=== PATIENT | female | born 1985 | race African-American/Black ===

== ENCOUNTER 2016-05-20 20:45 | Emergency (ER) | payer MEDICAID ==
[~2016-05-20] VITALS: Ht 149.9 cm; Wt 59.0 kg
[2016-05-20] MEDS ORDERED: ALBUTEROL2.5 MG/3 M INH (21:21)
[2016-05-20] MEDS ORDERED: IBUPROFEN600 MG ORAL (21:56)
[2016-05-20] MEDS ORDERED: VENTOLIN HFA18 GM INH (21:56)
[2016-05-20] MEDS ORDERED: Ketorolac 60mg Inj IM ONE (22:00)
[2016-05-20 22:28] VITALS: BP 127/84
--- NOTE | 2016-05-20 22:38 | Emergency Room Report ---
History of Present Illness General Chief Complaint: Sore Throat Source: Patient Present Illness HPI 30 YO F with 2 days sore throat, sharp pain left sided, not radiating, worse with swallowing, assoc with cough, rhinorrhea. + asthma, smoker. Ran out of inhaler. Didnt take any OTC meds before coming. Allergies: Coded Allergies: No Known Allergies (Unverified , 05/20/16) Patient History Past Medical History: asthma Past Surgical History: none Pertinent Family History: none Social History: Reports: smoking, Denies: alcohol use, drug use Last Menstrual Period: Apr Now: No Immunizations: UTD Reviewed Nursing Documentation: PMH: Agreed, PSxH: Agreed Nursing Documentation-PMH Hx Asthma: Yes Review of Systems All Other Systems: negative except mentioned in HPI Physical Exam Vital Signs Date Time Temp Pulse Resp B/P Pulse Ox O2 Delivery O2 Flow Rate FiO2 05/20/16 21:17 98.1 75 16 130/88 99 Room Air Sp02 EP Interpretation: reviewed, normal General Appearance: normal inspection, well appearing, no apparent distress, alert, GCS 15, non-toxic Head: normocephalic, atraumatic Eyes: bilateral eye EOMI, bilateral eye PERRL ENT: normal ENT inspection, hearing grossly normal, normal pharynx, no angioedema, normal voice, TMs + canals normal, uvula midline Neck: normal inspection, full range of motion, supple, no bony tend Respiratory: normal inspection, lungs clear, normal breath sounds, no respiratory distress, no retraction, no wheezing Cardiovascular #1: regular rate, rhythm, no edema Gastrointestinal: normal inspection, normal bowel sounds, non tender, soft, no guarding, no hernia Genitourinary: no CVA tenderness Musculoskeletal: normal inspection, back normal, normal range of motion, Griselda' s Sign negative Neurologic: normal inspection, alert, oriented x3, responsive, press officer III-XII nml as tested, motor strength/tone normal, speech normal Psychiatric: normal inspection, judgement/insight normal, mood/affect normal Skin: normal inspection, normal color, no rash Lymphatic: normal inspection Medical Decision Making Diagnostic Impression: Primary Impression: Sore throat ER Course 30YO F with URI and sore throat symptoms. VSS. Afebrile No obvious source of bacterial infection in oropharynx, ears, lungs, skin, abdomen on exam Well appearing Not in acute asthma exacerbation Advised supportive treatment with ibuprofen Refilled Ventolin PMD followup DC home Understands to return for worsening symptoms - Ibuprofen PRN pain - Ventolin for cough - Follow up with your primary care doctor in 2-3 days Last Vital Signs Date Time Temp Pulse Resp B/P Pulse Ox O2 Delivery O2 Flow Rate FiO2 05/20/16 22:28 98.3 77 19 127/84 98 Room Air Status: improved Disposition: HOME, SELF-CARE Condition: Improved Scripts Ibuprofen* (MOTRIN*) 600 Mg Tablet 600 MG ORAL THREE TIMES A DAY for sore throat, #30 TAB 0 Refills Prov: JIAN UP M.D. 05/20/16 Albuterol Sulfate (VENTOLIN HFA) 18 Gm Hfa.aer.ad 2 PUFFS INH EVERY 6 HOURS, #18 GM 0 Refills Prov: JIAN UP M.D. 05/20/16 Patient Instructions: Pharyngitis, Hcer-io-Lrst Additional Instructions: - Take ibuprofen every 8 hours with food as needed for sore throat - Drink plenty of fluids - Dry tea with honey at night for cough - Use ventolin as needed for cough JIAN UP M.D. May 20, 2016 22:38
[2016-05-20 22:49] VITALS: BP 127/84
== END 2016-05-20 22:52 | disposition home or self-care (01) ==
LOC: EMR 22:15
DX: R07.0 Pain in throat (principal); R05 Cough; J45.909 Unspecified asthma, uncomplicated; F17.200 Nicotine dependence, unspecified, uncomplicated; J34.89 Other specified disorders of nose and nasal sinuses
CPT/HCPCS: 96372; 99284

== ENCOUNTER 2017-10-05 08:19 | Emergency (ER) | payer MEDICAID ==
[~2017-10-05] VITALS: Ht 149.9 cm; Wt 68.0 kg
[~2017-10-05 08:19] MED LIST: ALBUTEROL2.5 MG/3 M INH; IBUPROFEN600 MG ORAL; VENTOLIN HFA18 GM INH
[2017-10-05 08:29] VITALS: BP 131/82
[2017-10-05] MEDS ORDERED: KENALOG 0.025%15 GM APPLIC (08:53)
[2017-10-05 09:22] VITALS: BP 127/74
--- NOTE | 2017-10-05 13:28 | Emergency Room Report ---
History of Present Illness General Chief Complaint: Skin Rash/Abscess Source: Patient Present Illness HPI Patient is a 32-year-old female who presented after increased itchy rash to her right lower extremity. Patient had reportedly been having increased discomfort to that area for several days. The patient had recently been using some sandals with metallic inserts. Patient denies any recent trauma. She had not been having any fever. She denies any blistering. Patient denies recent antibiotic use. She denies being . Allergies: Coded Allergies: No Known Allergies (Unverified , 05/20/16) Patient History Past Medical History: see triage record Last Menstrual Period: 09/01/17 Reviewed Nursing Documentation: PMH: Agreed; PSxH: Agreed Nursing Documentation-PMH Past Medical History: No History, Except For Hx Asthma: Yes Review of Systems All Other Systems: negative except mentioned in HPI Physical Exam Vital Signs Date Time Temp Pulse Resp B/P (MAP) Pulse Ox O2 Delivery O2 Flow Rate FiO2 10/05/17 08:29 99.0 74 18 131/82 97 Room Air 99.0 General Appearance: well appearing, no apparent distress, alert, GCS 15 Head: normocephalic, atraumatic ENT: hearing grossly normal, normal voice Neck: full range of motion, supple Respiratory: no respiratory distress, speaking full sentences Cardiovascular #1: normal inspection, regular rate, rhythm Musculoskeletal: no calf tenderness Neurologic: normal gait Psychiatric: mood/affect normal Skin: other - two discrete blister to right foot, no erythema Medical Decision Making Diagnostic Impression: Primary Impression: Contact dermatitis ER Course Patient presented for skin rash. Differential diagnosis included was not limited to allergic reaction, contact dermatitis, dyshidrotic eczema among others. Patient has a benign exam and does not appear to require any further imaging or laboratory testing at this time. The patient appears to have some evidence of contact dermatitis which is likely the related to a nickel allergy. The patient given prescription for triamcinolone cream.The patient is advised to follow up with primary care doctor. Patient is advised to return if any worsening condition or if any changes in status that are concerning. This report is dictated with [employer] order picker software which may occasionally lead to discrepancies related to use of this software. Last Vital Signs Date Time Temp Pulse Resp B/P (MAP) Pulse Ox O2 Delivery O2 Flow Rate FiO2 10/05/17 09:22 98.1 70 16 127/74 99 Room Air 99.0 Status: improved Disposition: HOME, SELF-CARE Condition: Stable Scripts Triamcinolone Acet (Triamcinolone Acetonide) 15 Gm Cream..g. 15 GM APPLIC DAILY, #15 GM Prov: Damian Rothman MD 10/05/17 Referrals: NOT CHOSEN IPA/MD,REFERRING Patient Instructions: Contact Dermatitis, [id number] Damian Rothman MD Oct 05, 2017 13:28
== END 2017-10-05 09:23 | disposition home or self-care (01) ==
LOC: EMR 08:58
DX: L25.9 Unspecified contact dermatitis, unspecified cause (principal); J45.909 Unspecified asthma, uncomplicated
CPT/HCPCS: 99283

== ENCOUNTER 2018-10-20 09:57 | Emergency (ER) | payer MEDICAID ==
[~2018-10-20] VITALS: Ht 149.9 cm; Wt 65.8 kg
[~2018-10-20 09:57] MED LIST changes: +KENALOG 0.025%15 GM APPLIC
[2018-10-20 10:12] VITALS: BP 152/87
--- NOTE | 2018-10-20 10:21 | NUR ---
ED Nurse Note: pt walked in from home c/o n/v/d and abd pain for 2 days unable to sleep ermd eval done awaiting orders.
--- NOTE | 2018-10-20 10:28 | Emergency Room Report ---
History of Present Illness General Chief Complaint: Nausea, Vomiting, and Diarrhea Source: Patient Present Illness HPI Disclaimer: Please note that this report is being documented using DRAGON technology. This can lead to erroneous entry secondary to incorrect interpretation by the dictating instrument. HPI: 33-year-old female with a history of asthma presents for evaluation of abdominal pain, vomiting and diarrhea. Symptoms began approximately 3 days ago with some abdominal cramping and then progressed to profuse watery, nonbloody diarrhea. Over the past 2 days she has been vomiting and unable to hold down solids or liquids. She denies any hematemesis but now states she is vomiting bile. She notes urinary frequency but denies dysuria, hematuria, vaginal bleeding or vaginal discharge. LMP 3 weeks ago. Denies any sinus congestion, sinus pressure, headaches, sore throat, chest pain, cough, shortness of breath. She did note some wheezing last night but did not need her albuterol inhaler. Denies any new back pain or rash. She did note feeling very weak and near syncopal when rising from a seated position over the past couple days which she attributes to dehydration. PMH: Asthma PSH: section Allergies: Denies Social Hx: THC use, denies alcohol use, denies tobacco use Allergies: Coded Allergies: No Known Allergies (Unverified , 05/20/16) Patient History Last Menstrual Period: 09/25/18 Now: No Nursing Documentation-PM Past Medical History: No History, Except For Hx Asthma: Yes Hx Gastrointestinal Problems: Yes - GASTRITIS Review of Systems All Other Systems: negative except mentioned in HPI Physical Exam Vital Signs Date Time Temp Pulse Resp B/P (MAP) Pulse Ox O2 Delivery O2 Flow Rate FiO2 10/20/18 10:01 98.1 94 16 152/87 (108) 99 Room Air General: Awake and alert, no acute distress HEENT: NC/AT. EOMI. anicteric sclera. Very dry mucous membranes Cardiovascular: RRR. S1 and S2 normal. No murmur appreciated. Slightly sluggish capillary refill Resp: Normal work of breathing. No cough, wheezing or crackles appreciated Abdomen: Abdomen is soft, nondistended. Mild tenderness in the epigastrium. No masses. No rebound, negative Muir sign. Skin: Intact. No abrasions, laceration or rash over the exposed skin MSK: Normal tone and bulk. Moving all extremities. No obvious deformity. Neuro: Awake and alert. Mentating appropriately. Medical Decision Making ER Course 33-year-old female presents for evaluation after several days of vomiting, diarrhea no lightheadedness. Differential includes but is not limited to gastroenteritis, gastritis, cholecystitis, pancreatitis, appendicitis, , ectopic , urinary tract infection, pyelonephritis. Of these, viral gastroenteritis is the likely diagnosis. She requires IV fluids as she is clinically dehydrated. We will start metabolic work-up give antiemetics and IV hydration. Advance work-up as needed. Laboratory Tests Test 10/20/18 10:34 White Blood Count 12.9 K/UL (4.8-10.8) H Red Blood Count 5.12 M/UL (4.20-5.40) Hemoglobin 15.2 G/DL (12.0-16.0) Hematocrit 45.4 % (37.0-47.0) Mean Corpuscular Volume 89 FL (80-99) Mean Corpuscular Hemoglobin 29.8 PG (27.0-31.0) Mean Corpuscular Hemoglobin Concent 33.5 G/DL (32.0-36.0) Red Cell Distribution Width 11.0 % (11.6-14.8) L Platelet Count 383 K/UL (150-450) Mean Platelet Volume 6.6 FL (6.5-10.1) Neutrophils (%) (Auto) % (45.0-75.0) Lymphocytes (%) (Auto) % (20.0-45.0) Monocytes (%) (Auto) % (1.0-10.0) Eosinophils (%) (Auto) % (0.0-3.0) Basophils (%) (Auto) % (0.0-2.0) Differential Total Cells Counted 100 Neutrophils % (Manual) 82 % (45-75) H Lymphocytes % (Manual) 14 % (20-45) L Monocytes % (Manual) 3 % (1-10) Eosinophils % (Manual) 1 % (0-3) Basophils % (Manual) 0 % (0-2) Band Neutrophils 0 % (0-8) Platelet Estimate Adequate Platelet Morphology Normal Red Blood Cell Morphology Normal Urine Color Yellow Urine Appearance Slightly cloudy Urine pH 6 (4.5-8.0) Urine Specific [place] 1.025 (1.005-1.035) Urine Protein 3+ (NEGATIVE) H Urine Glucose (UA) Negative (NEGATIVE) Urine Ketones 4+ (NEGATIVE) H Urine Blood 1+ (NEGATIVE) H Urine Nitrite Negative (NEGATIVE) Urine Bilirubin Negative (NEGATIVE) Urine Urobilinogen Normal MG/DL (0.0-1.0) Urine Leukocyte Esterase Negative (NEGATIVE) Urine RBC 2-4 /HPF (0 - 2) H Urine WBC 5-10 /HPF (0 - 2) H Urine Squamous Epithelial Cells Many /LPF (NONE/OCC) H Urine Amorphous Sediment Few /LPF (NONE) H Urine Bacteria Few /HPF (NONE) Urine HCG, Qualitative Negative (NEGATIVE) Sodium Level 137 MMOL/L (136-145) Potassium Level 3.3 MMOL/L (3.5-5.1) L Chloride Level 99 MMOL/L (98-107) Carbon Dioxide Level 24 MMOL/L (21-32) Anion Gap 14 mmol/L (5-15) Blood Urea Nitrogen 13 mg/dL (7-18) Creatinine 1.0 MG/DL (0.55-1.30) Estimat Glomerular Filtration Rate > 60 mL/min (>60) Glucose Level 162 MG/DL (74-106) H Calcium Level 9.9 MG/DL (8.5-10.1) Total Bilirubin 0.6 MG/DL (0.2-1.0) Aspartate Amino Transf (AST/SGOT) 21 U/L (15-37) Alanine Aminotransferase (ALT/SGPT) 23 U/L (12-78) Alkaline Phosphatase 142 U/L (46-116) H Total Protein 9.8 G/DL (6.4-8.2) H Albumin 4.9 G/DL (3.4-5.0) Globulin 4.9 g/dL Albumin/Globulin Ratio 1.0 (1.0-2.7) Lipase 88 U/L (73-393) Reevaluation Time: 13:53 Last Vital Signs Date Time Temp Pulse Resp B/P (MAP) Pulse Ox O2 Delivery O2 Flow Rate FiO2 10/20/18 10:12 98.1 16 152/87 99 Room Air 10/20/18 10:01 94 Status: improved Reevaluation Impression Patient is feeling much better after receiving IV fluids and antiemetics. Lab work is largely reassuring though there is 2+ leukocyte esterase and white cells concerning for acute urinary tract infection. Will send for confirmatory culture but will treat with Keflex. Patient is requesting a prescription for Gas-X and continued antiemetics. We will send her home with Zofran. We discussed need to stay hydrated as well as proper follow-up with her PMD. I also included the names and numbers of several clinics in the area where she can be seen. We discussed reasons to return to the emergency department and the patient understands and agrees with this treatment plan. Disposition: HOME, SELF-CARE Condition: Improved Scripts Cephalexin* (KEFLEX*) 500 Mg Capsule 500 MG ORAL EVERY 12 HOURS for 7 Days, #14 CAP 0 Refills Prov: Ronnie Watts MD 10/20/18 Simethicone (GAS-X) 125 Mg Capsule 125 MG PO TID for 7 Days, #20 CAP Prov: Ronnie Watts MD 10/20/18 Ondansetron Odt* (ZOFRAN ODT*) 4 Mg Tab.rapdis 4 MG BC EVERY 6 HOURS PRN for Nausea & Vomiting, #20 TAB 0 Refills Prov: Ronnie Watts MD 10/20/18 Referrals: NON PHYSICIAN (PCP) Ronnie Watts MD Oct 20, 2018 10:28
--- NOTE | 2018-10-20 10:46 | NUR ---
ED Nurse Note: blood and urine sent to lab pt on monitor vss . pt medicated.
[2018-10-20 10:50] LABS: HEMATOCRIT 45.4 % (37.0-47.0); HEMOGLOBIN 15.2 G/DL (12.0-16.0); MEAN CORPUSCULAR VOLUME 89 FL (80-99); PLATELET COUNT 383 K/UL (150-450); RED BLOOD COUNT 5.12 M/UL (4.20-5.40); WHITE BLOOD COUNT 12.9 K/UL (4.8-10.8)
[2018-10-20 11:03] LABS: APPEARANCE,URINE SLIGHTLY CLOUDY; BILIRUBIN, URINE NEGATIVE (NEGATIVE); GLUCOSE, URINE (UA) NEGATIVE (NEGATIVE); KETONES,URINE 4+ (NEGATIVE); LEUKOCYTE ESTERASE ,URINE NEGATIVE (NEGATIVE); NITRITE,URINE NEGATIVE (NEGATIVE); PH,URINE 6 (4.5-8.0); PROTEIN,URINE 3+ (NEGATIVE); UROBILINOGEN,URINE NORMAL MG/DL (0.0-1.0)
[2018-10-20 11:07] LABS: COLOR,URINE YELLOW
[2018-10-20 11:14] LABS: ANION GAP 14 mmol/L (5-15); BLOOD UREA NITROGEN 13 mg/dL (7-18); CALCIUM 9.9 MG/DL (8.5-10.1); CARBON DIOXIDE 24 MMOL/L (21-32); CHLORIDE 99 MMOL/L (98-107); POTASSIUM 3.3 MMOL/L (3.5-5.1); SODIUM 137 MMOL/L (136-145)
[2018-10-20 11:18] LABS: ALANINE AMINOTRANSFERASE 23 U/L (12-78); ALBUMIN 4.9 G/DL (3.4-5.0); ALKALINE PHOSPHATASE 142 U/L (46-116); ASPARTATE AMINO TRANSFERASE 21 U/L (15-37); BILIRUBIN,TOTAL 0.6 MG/DL (0.2-1.0)
[2018-10-20 12:00] VITALS: BP 128/73
--- NOTE | 2018-10-20 12:00 | NUR ---
ED Nurse Note: IVF COMPLETE PT ON MONITOR SLEEPING ON LEFT LATERAL POSITION. VSS.
[2018-10-20] MEDS ORDERED: CEPHALEXIN500 MG ORAL (13:52)
[2018-10-20] MEDS ORDERED: ONDANSETRON ODT4 MG BC (13:52)
[2018-10-20] MEDS ORDERED: GAS-X125 MG PO (13:52)
[2018-10-20] MEDS ORDERED: Morphine Sulfate 2mg/ml Inj(IV/IM USE ONLY) IVP ONE (14:00)
[2018-10-20 14:05] VITALS: BP 135/73
--- NOTE | 2018-10-20 14:05 | NUR ---
ER DISCHARGE NOTE: Patient is cleared to be discharged per ERMD, pt is aox4, on room air, with stable vital signs. pt was given dc and prescription instructions, pt was able to verbalize understanding, pt id band and iv site removed without complications. pt is able to ambulate with steady gait. pt took all belongings.
[2018-10-21] MEDS ORDERED: PHENERGAN25 M1 ORAL (15:10)
== END 2018-10-20 14:05 | disposition home or self-care (01) ==
LOC: EMR 10:12
DX: R10.9 Unspecified abdominal pain (principal); R11.10 Vomiting, unspecified; R19.7 Diarrhea, unspecified
CPT/HCPCS: 36415; 80053; 81003; 81025; 83690; 85007; 85025; 96361; 96374; 96375; 96376; 99284; J2405; S0028

== ENCOUNTER 2018-10-21 12:31 | Emergency (ER) | payer MEDICAID ==
[~2018-10-21] VITALS: Ht 149.9 cm; Wt 65.8 kg
[~2018-10-21 12:31] MED LIST changes: +CEPHALEXIN500 MG ORAL; +GAS-X125 MG PO; +ONDANSETRON ODT4 MG BC
[2018-10-21 12:35] VITALS: BP 132/83
--- NOTE | 2018-10-21 12:35 | NUR ---
ED Nurse Note: pt brought in to ER by ambulance from home due to abdominal pain 7/10 N/V. pt aao x4 and ambulatory but weak due to abdominal pain. calm and cooperative but fatigued. skin clean and intact. pt vomiting white saliva x3. no acute distress noted. vss as documented.
--- NOTE | 2018-10-21 13:20 | Emergency Room Report ---
History of Present Illness General Chief Complaint: Abdominal Pain Source: EMS Present Illness HPI Disclaimer: Please note that this report is being documented using DRAGON technology. This can lead to erroneous entry secondary to incorrect interpretation by the dictating instrument. HPI: Is a 33-year-old otherwise healthy female who presents for evaluation of vomiting abdominal pain. Seen here yesterday for similar presentation and diagnosed with gastritis and urinary tract infection. She was discharged on antibiotics but she states she has not been unable to take it her medications due to persistent vomiting. She states that Zofran may not work for her. No new symptoms. She denies fever, chest pain, shortness of breath, dysuria, hematuria. PMH: Asthma PSH: section Allergies: Denies Social Hx: THC use, denies alcohol use, denies tobacco use Allergies: Coded Allergies: No Known Allergies (Unverified , 05/20/16) Patient History Last Menstrual Period: 7-21 Now: No Nursing Documentation-PMH Past Medical History: No History, Except For Hx Asthma: Yes Hx Gastrointestinal Problems: Yes - gastritis Review of Systems All Other Systems: negative except mentioned in HPI Physical Exam Vital Signs Date Time Temp Pulse Resp B/P (MAP) Pulse Ox O2 Delivery O2 Flow Rate FiO2 10/21/18 12:27 98.4 63 18 132/83 (99) 98 Room Air General: Awake and alert, no acute distress, appears fatigued HEENT: NC/AT. EOMI. moist mucous membranes Cardiovascular: RRR. S1 and S2 normal. No murmur appreciated Resp: Normal work of breathing. No cough, wheezing or crackles appreciated Abdomen: Abdomen is soft, nondistended. Tenderness in the epigastrium. No masses appreciated Skin: Intact. No abrasions, laceration or rash over the exposed skin MSK: Normal tone and bulk. Moving all extremities. No obvious deformity. Neuro: Awake and alert. Mentating appropriately. Medical Decision Making Diagnostic Impression: Primary Impression: Gastroenteritis ER Course 33-year-old female presents for evaluation for the second time in 2 days for nausea, vomiting and abdominal pain. We will repeat labs and treat with IV fluids. We will give her Reglan for nausea as Zofran did not appear to work for her as an outpatient. Vital signs are stable. Laboratory Tests Test 10/21/18 13:40 10/21/18 14:30 White Blood Count 9.4 K/UL (4.8-10.8) Red Blood Count 4.90 M/UL (4.20-5.40) Hemoglobin 14.7 G/DL (12.0-16.0) Hematocrit 43.0 % (37.0-47.0) Mean Corpuscular Volume 88 FL (80-99) Mean Corpuscular Hemoglobin 30.0 PG (27.0-31.0) Mean Corpuscular Hemoglobin Concent 34.1 G/DL (32.0-36.0) Red Cell Distribution Width 11.0 % (11.6-14.8) L Platelet Count 350 K/UL (150-450) Mean Platelet Volume 6.2 FL (6.5-10.1) L Neutrophils (%) (Auto) 75.9 % (45.0-75.0) H Lymphocytes (%) (Auto) 16.3 % (20.0-45.0) L Monocytes (%) (Auto) 6.4 % (1.0-10.0) Eosinophils (%) (Auto) 0.0 % (0.0-3.0) Basophils (%) (Auto) 1.4 % (0.0-2.0) Sodium Level 139 MMOL/L (136-145) Potassium Level 3.7 MMOL/L (3.5-5.1) Chloride Level 102 MMOL/L (98-107) Carbon Dioxide Level 25 MMOL/L (21-32) Anion Gap 12 mmol/L (5-15) Blood Urea Nitrogen 10 mg/dL (7-18) Creatinine 0.8 MG/DL (0.55-1.30) Estimate Glomerular Filtration Rate > 60 mL/min (>60) Glucose Level 119 MG/DL (74-106) H Calcium Level 9.3 MG/DL (8.5-10.1) Total Bilirubin 0.5 MG/DL (0.2-1.0) Aspartate Amino Transferase (AST) 26 U/L (15-37) Alanine Aminotransferase (ALT) 27 U/L (12-78) Alkaline Phosphatase 110 U/L (46-116) Total Protein 8.6 G/DL (6.4-8.2) H Albumin 4.4 G/DL (3.4-5.0) Globulin 4.2 g/dL Albumin/Globulin Ratio 1.0 (1.0-2.7) Lipase 77 U/L (73-393) Urine Color Yellow Urine Appearance Clear Urine pH 6 (4.5-8.0) Urine Specific [place] 1.020 (1.005-1.035) Urine Protein 2+ (NEGATIVE) H Urine Glucose (UA) Negative (NEGATIVE) Urine Ketones 4+ (NEGATIVE) H Urine Blood Negative (NEGATIVE) Urine Nitrite Negative (NEGATIVE) Urine Bilirubin Negative (NEGATIVE) Urine Urobilinogen Normal MG/DL (0.0-1.0) Urine Leukocyte Esterase Negative (NEGATIVE) Urine RBC 0-2 /HPF (0 - 2) Urine WBC 0-2 /HPF (0 - 2) Urine Squamous Epithelial Cells Few /LPF (NONE/OCC) Urine Bacteria Few /HPF (NONE) Urine Mucus Moderate /LPF (NONE/OCC) H Reevaluation Time: 15:00 Last Vital Signs Date Time Temp Pulse Resp B/P (MAP) Pulse Ox O2 Delivery O2 Flow Rate FiO2 10/21/18 12:35 98.4 63 18 132/83 98 Room Air Status: improved Reevaluation Impression Labs have returned largely within normal limits. The patient did have significant improvement with Reglan but required Benadryl for akathisia. She does not want to be discharged home on Reglan and we will send her on Phenergan instead. She has been instructed to follow-up with her PMD. Urinalysis appears improved as compared to yesterday however we will continue the antibiotics until cultures are resulted. She understands and agrees with this treatment plan will be discharged home. Disposition: HOME, SELF-CARE Condition: Improved Scripts Promethazine Hcl* (PHENERGAN*) 25 Mg Tablet 25 MG ORAL Q6H, #15 TAB 0 Refills Prov: Ronnie Watts MD 10/21/18 Ronnie Watts MD Oct 21, 2018 13:20
[2018-10-21] MEDS ORDERED: Metoclopramide 10mg/2ml Inj IVP ONE (13:30)
[2018-10-21 13:50] LABS: BASOPHILS % (AUTO) 1.4 % (0.0-2.0); HEMOGLOBIN 14.7 G/DL (12.0-16.0); LYMPHOCYTES % (AUTO) 16.3 % (20.0-45.0); MEAN CORPUSCULAR VOLUME 88 FL (80-99); MONOCYTES % (AUTO) 6.4 % (1.0-10.0); NEUTROPHILS % (AUTO) 75.9 % (45.0-75.0); PLATELET COUNT 350 K/UL (150-450); WHITE BLOOD COUNT 9.4 K/UL (4.8-10.8)
[2018-10-21 13:59] LABS: ANION GAP 12 mmol/L (5-15); BLOOD UREA NITROGEN 10 mg/dL (7-18); CALCIUM 9.3 MG/DL (8.5-10.1); CARBON DIOXIDE 25 MMOL/L (21-32); CHLORIDE 102 MMOL/L (98-107); CREATININE 0.8 MG/DL (0.55-1.30); POTASSIUM 3.7 MMOL/L (3.5-5.1); SODIUM 139 MMOL/L (136-145)
[2018-10-21 14:05] LABS: ALANINE AMINOTRANSFERASE 27 U/L (12-78); ALBUMIN 4.4 G/DL (3.4-5.0); ALKALINE PHOSPHATASE 110 U/L (46-116); ASPARTATE AMINO TRANSFERASE 26 U/L (15-37); BILIRUBIN,TOTAL 0.5 MG/DL (0.2-1.0)
--- NOTE | 2018-10-21 14:33 | NUR ---
ED Nurse Note: pt is not vomiting anymore and ambulated to bathroom wih steady gait.
[2018-10-21 14:51] LABS: APPEARANCE,URINE CLEAR; BILIRUBIN, URINE NEGATIVE (NEGATIVE); GLUCOSE, URINE (UA) NEGATIVE (NEGATIVE); KETONES,URINE 4+ (NEGATIVE); LEUKOCYTE ESTERASE ,URINE NEGATIVE (NEGATIVE); NITRITE,URINE NEGATIVE (NEGATIVE); PH,URINE 6 (4.5-8.0); PROTEIN,URINE 2+ (NEGATIVE); UROBILINOGEN,URINE NORMAL MG/DL (0.0-1.0)
[2018-10-21 14:53] LABS: COLOR,URINE YELLOW
[2018-10-21] MEDS ORDERED: PHENERGAN25 M1 ORAL (15:10)
[2018-10-21 15:15] VITALS: BP 132/83
--- NOTE | 2018-10-21 15:15 | NUR ---
ER DISCHARGE NOTE: Patient is cleared to be discharged per ERMD, pt is aox4, accompanied by boyfriend, on room air, with stable vital signs. pt was given dc and prescription instructions, pt was able to verbalize understanding, pt id band and iv site removed without complications. pt is able to ambulate with steady gait. pt took all belongings.
== END 2018-10-21 15:15 | disposition home or self-care (01) ==
LOC: EDBD 12:31 → EMR 14:24
DX: K52.9 Noninfective gastroenteritis and colitis, unspecified (principal); J45.909 Unspecified asthma, uncomplicated
CPT/HCPCS: 36415; 80053; 81003; 83690; 85025; 96361; 96374; 99284; J2765

== ENCOUNTER 2019-01-23 22:39 | Emergency (ER) | payer MEDICAID ==
[~2019-01-23] VITALS: Ht 149.9 cm; Wt 68.0 kg
[~2019-01-23 22:39] MED LIST changes: +PHENERGAN25 M1 ORAL
[2019-01-23 23:38] VITALS: BP 163/84
--- NOTE | 2019-01-23 23:59 | Emergency Room Report ---
History of Present Illness General Chief Complaint: Nausea Source: Patient Present Illness [facility] This is a 33-year-old female with a history of cyclic vomiting syndrome. She said that she has gastroenteritis. This occurred many times. She also smokes marijuana. She presents with chief complaint of abdominal pain with nausea and vomiting. No diarrhea. Onset yesterday. And keep anything down. Similar symptom in the past. She says she took 5 hot showers already. This seemed to help some. Vomiting is nonbloody nonbilious. No fever chills. Pain is crampy and sharp in nature. 8 out of 10. Allergies: Coded Allergies: No Known Allergies (Unverified , 05/20/16) Patient History Past Medical History: see triage record, old chart reviewed Past Surgical History: none Pertinent Family History: none Social History: Reports: drug use - THC Last Menstrual Period: 12/2018 Now: No - "could be" : 1 Para: 1 Immunizations: other Reviewed Nursing Documentation: PMH: Agreed; PSxH: Agreed Nursing Documentation-PMH Hx Asthma: Yes Hx Gastrointestinal Problems: Yes - gastritis Review of Systems Eye: Denies: eye pain, blurred vision ENT: Denies: ear pain, nose congestion, throat swelling Respiratory: Denies: cough, shortness of breath Cardiovascular: Denies: chest pain, palpitations Gastrointestinal: Reports: abdominal pain, nausea, vomiting; Denies: diarrhea Musculoskeletal: Denies: back pain, joint pain Skin: Denies: rash Neurological: Denies: headache, numbness Endocrine: Denies: increased thirst, increased urine Hematologic/Lymphatic: Denies: easy bruising All Other Systems: negative except mentioned in HPI Physical Exam Vital Signs Date Time Temp Pulse Resp B/P (MAP) Pulse Ox O2 Delivery O2 Flow Rate FiO2 01/23/19 23:08 99.0 105 20 163/84 (110) 97 Room Air Vitals with high blood pressure Sp02 EP Interpretation: reviewed, normal General Appearance: well appearing, no apparent distress, alert Head: normocephalic, atraumatic Eyes: bilateral eye PERRL, bilateral eye EOMI ENT: hearing grossly normal, normal pharynx Neck: full range of motion, supple, no meningismus Respiratory: chest non-tender, lungs clear, normal breath sounds Cardiovascular #1: regular rate, rhythm, no murmur Gastrointestinal: no mass, no organomegaly, no bruit, non-distended, tenderness - Mild, diffuse, decreased bowel sounds Musculoskeletal: back normal, gait/station normal, normal range of motion Psychiatric: mood/affect normal Medical Decision Making Diagnostic Impression: Primary Impression: Cannabinoid hyperemesis syndrome Additional Impression: UTI (urinary tract infection) Qualified Codes: N30.00 - Acute cystitis without hematuria ER Course Premises secondary to cannabis. No evidence of acute abdomen. Better after medication. Will discharge home. Advised her to stop smoking marijuana. Last Vital Signs Date Time Temp Pulse Resp B/P (MAP) Pulse Ox O2 Delivery O2 Flow Rate FiO2 01/23/19 23:38 99.0 105 20 163/84 97 Room Air Status: improved Disposition: HOME, SELF-CARE Condition: Stable Scripts Nitrofurantoin Monohyd/M-Cryst (Nitrofurantoin Angelina-Mcr 100 mg) 100 Mg Capsule 100 MG ORAL Q12H, #14 CAP Prov: Yamil Plascencia MD 01/24/19 Ondansetron (Zofran) 4 Mg Tablet 4 MG ORAL Q6H PRN for Nausea & Vomiting, #10 TAB 0 Refills Prov: Yamil Plascencia MD 01/24/19 Referrals: [facility],REFERRING (PCP) Additional Instructions: Stop smoking marijuana. This is causing your vomiting. Follow-up with your doctor in 7 days. Increase fluids. Return if worse. Yamil Plascencia MD Jan 23, 2019 23:59
[2019-01-24] MEDS ORDERED: Promethazine HCl 50 MG in NS 110 ML IVPB ONE ×2
[2019-01-24] MEDS ORDERED: Morphine Sulfate 4mg/ml Inj (IV USE ONLY) IVP ONE
[2019-01-24 00:11] LABS: APPEARANCE,URINE CLOUDY; BILIRUBIN, URINE NEGATIVE (NEGATIVE); GLUCOSE, URINE (UA) NEGATIVE (NEGATIVE); KETONES,URINE 3+ (NEGATIVE); LEUKOCYTE ESTERASE ,URINE NEGATIVE (NEGATIVE); NITRITE,URINE NEGATIVE (NEGATIVE); PH,URINE 6 (4.5-8.0); PROTEIN,URINE 3+ (NEGATIVE); UROBILINOGEN,URINE NORMAL MG/DL (0.0-1.0)
[2019-01-24 00:23] LABS: COLOR,URINE YELLOW
[2019-01-24] MEDS ORDERED: Morphine Sulfate 10mg/ml Inj IM ONE (00:30)
[2019-01-24] MEDS ORDERED: Promethazine 50mg/ml Inj IM ONE (00:30)
[2019-01-24] MEDS ORDERED: cefTRIAXone 1 GM in NS 55 ML IVPB ONE (00:45)
[2019-01-24 00:49] LABS: HEMATOCRIT 45.1 % (37.0-47.0); HEMOGLOBIN 16.2 G/DL (12.0-16.0); MEAN CORPUSCULAR VOLUME 85 FL (80-99); PLATELET COUNT 352 K/UL (150-450); RED BLOOD COUNT 5.32 M/UL (4.20-5.40); RED CELL DISTRIBUTION WIDTH 9.6 % (11.6-14.8); WHITE BLOOD COUNT 12.3 K/UL (4.8-10.8)
[2019-01-24 00:58] LABS: ANION GAP 15 mmol/L (5-15); BLOOD UREA NITROGEN 11 mg/dL (7-18); CARBON DIOXIDE 24 MMOL/L (21-32); CHLORIDE 100 MMOL/L (98-107); CREATININE 0.9 MG/DL (0.55-1.30); POTASSIUM 4.2 MMOL/L (3.5-5.1); SODIUM 139 MMOL/L (136-145)
[2019-01-24] MEDS ORDERED: ZOFRAN4 MG ORAL (01:18)
[2019-01-24] MEDS ORDERED: MACROBID100 MG ORAL (01:18)
[2019-01-24 01:33] VITALS: BP 145/80
[2019-01-24 02:45] VITALS: BP 163/84
== END 2019-01-24 02:45 | disposition home or self-care (01) ==
LOC: EMR 23:20
DX: F12.288 Cannabis dependence with other cannabis-induced disorder (principal); R11.10 Vomiting, unspecified; N30.00 Acute cystitis without hematuria
CPT/HCPCS: 36415; 80048; 81001; 81025; 85025; 87086; 96365; 96367; 96375; J0696; J2270; J2550; Z7502; 99284; J7030

== ENCOUNTER 2019-11-26 08:51 | Emergency (ER) | payer MEDICAID ==
[~2019-11-26] VITALS: Ht 149.9 cm; Wt 68.0 kg
[~2019-11-26 08:51] MED LIST changes: +MACROBID100 MG ORAL; +ZOFRAN4 MG ORAL
--- NOTE | 2019-11-26 09:06 | Emergency Room Report ---
History of Present Illness General Chief Complaint: Abdominal Pain Source: Patient, Medical Record Present Illness HPI Patient is a 34-year-old female past medical history of gastritis and cyclical vomiting who presents to the ER complaining of epigastric pain, nausea and vomiting for the past 6 days. Patient complains of nonbilious nonbloody vomitus. She denies any fever or chills. She denies any diarrhea. She denies any dysuria or hematuria. She denies any chest pain or shortness of breath. She states that Reglan and Zofran do not work. She states that she was an outside facility 3 days ago and was given those medications which did not help. 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 COVID-19 Screening: Negative COVID-19 COVID-19 Testing Source: weeks ago Patient History Last Menstrual Period: 11/13/19 Now: No Reviewed Nursing Documentation: PMH: Agreed; PSxH: Agreed Nursing Documentation-PMH Past Medical History: No History, Except For Hx Asthma: Yes Hx Gastrointestinal Problems: Yes - gastritis Review of Systems All Other Systems: negative except mentioned in HPI Physical Exam Vital Signs Date Time Temp Pulse Resp B/P (MAP) Pulse Ox O2 Delivery O2 Flow Rate FiO2 11/26/19 08:55 98.6 77 16 142/82 (102) 97 Room Air Sp02 EP Interpretation: reviewed, normal General Appearance: no apparent distress, alert, GCS 15, non-toxic Head: normocephalic, atraumatic Eyes: bilateral eye normal inspection, bilateral eye PERRL ENT: hearing grossly normal, normal pharynx, no angioedema, normal voice Neck: full range of motion, supple/symm/no masses Respiratory: chest non-tender, lungs clear, normal breath sounds, speaking full sentences Cardiovascular #1: regular rate, rhythm, no edema Gastrointestinal: other - Mild epigastric pain with no guarding or rebound Rectal: deferred Genitourinary: no CVA tenderness Musculoskeletal: back normal, normal range of motion, no calf tenderness, gait/station normal, non-tender Neurologic: automotive instructor III-XII nml as tested, oriented x3 Psychiatric: no suicidal/homicidal ideation Skin: no rash Lymphatic: no adenopathy Medical Decision Making Diagnostic Impression: Primary Impression: Gastritis Additional Impressions: Hypokalemia Cyclical vomiting ER Course 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 Patient has no fever and no elevated white blood cell count. Patient had mild epiga stric pain on exam. Patient given Protonix, intramuscular Haldol as well as Phenergan. On reevaluation she states that she feels improved. Her labs demonstrate mild hypokalemia with potassium of 3.4. Oral potassium chloride has been given. Patient also given IV fluids. Patient advised to refrain from THC use as it has caused her cyclical vomiting. After discussing risks and benefits of further diagnostics, treatment plans, as well as indications for and risks of admission, the patient is agreeable to being discharged home. I have explained that their evaluation and treatment in the emergency department today is an important step towards them achieving better health but that their evaluation today is not intended to replace further evaluation and treatment by a physician in their local clinic. I have explained that while the current findings suggest no immediate life threatening emergency they will require further evaluation and treatment by a physician of their choice in their area. They understand that it will be necessary for them to review the final reports of their ED visit with their clinic physician. We have reviewed indications for return to the Emergency Department. I have explained that additional time may need to pass and/or additional testing as an outpatient may be necessary before a definitive diagnosis can be made. They tell me they are willing to follow up as instructed within the timeframe I recommend. They appear to understand what we discussed. Additionally they understand that if they are unable to be seen by an outpatient physician they are welcome, and in fact should, return to the Emergency Department for a repeat evaluation. The patient is stable at time of discharge. Laboratory Tests Test 11/26/19 09:05 White Blood Count 8.6 K/UL (4.8-10.8) Red Blood Count 5.11 M/UL (4.20-5.40) Hemoglobin 15.2 G/DL (12.0-16.0) Hematocrit 43.3 % (37.0-47.0) Mean Corpuscular Volume 85 FL (80-99) Mean Corpuscular Hemoglobin 29.7 PG (27.0-31.0) Mean Corpuscular Hemoglobin Concent 35.0 G/DL (32.0-36.0) Red Cell Distribution Width 10.9 % (11.6-14.8) L Platelet Count 376 K/UL (150-450) Mean Platelet Volume 6.9 FL (6.5-10.1) Neutrophils (%) (Auto) 56.5 % (45.0-75.0) Lymphocytes (%) (Auto) 28.2 % (20.0-45.0) Monocytes (%) (Auto) 9.5 % (1.0-10.0) Eosinophils (%) (Auto) 0.6 % (0.0-3.0) Basophils (%) (Auto) 5.3 % (0.0-2.0) H Urine Color Yellow Urine Appearance Clear Urine pH 7 (4.5-8.0) Urine Specific [place] 1.010 (1.005-1.035) Urine Protein 2+ (NEGATIVE) H Urine Glucose (UA) Negative (NEGATIVE) Urine Ketones 2+ (NEGATIVE) H Urine Blood Negative (NEGATIVE) Urine Nitrite Negative (NEGATIVE) Urine Bilirubin Negative (NEGATIVE) Urine Urobilinogen 4 MG/DL (0.0-1.0) H Urine Leukocyte Esterase 1+ (NEGATIVE) H Urine RBC 0-2 /HPF (0 - 2) Urine WBC 2-4 /HPF (0 - 2) Urine Squamous Epithelial Cells Few /LPF (NONE/OCC) Urine Bacteria Few /HPF (NONE) Urine Mucus Few /LPF (NONE/OCC) H Urine HCG, Qualitative Negative (NEGATIVE) Sodium Level 134 MMOL/L (136-145) L Potassium Level 3.4 MMOL/L (3.5-5.1) L Chloride Level 97 MMOL/L (98-107) L Carbon Dioxide Level 25 MMOL/L (21-32) Anion Gap 12 mmol/L (5-15) Blood Urea Nitrogen 12 mg/dL (7-18) Creatinine 1.0 MG/DL (0.55-1.30) Estimated Glomerular Filtration Rate > 60 mL/min (>60) Glucose Level 162 MG/DL (74-106) H Calcium Level 8.8 MG/DL (8.5-10.1) Magnesium Level 2.1 MG/DL (1.8-2.4) Total Bilirubin 0.6 MG/DL (0.2-1.0) Aspartate Amino Transferase (AST) 13 U/L (15-37) L Alanine Aminotransferase (ALT) 19 U/L (12-78) Alkaline Phosphatase 112 U/L (46-116) Total Protein 8.1 G/DL (6.4-8.2) Albumin 4.3 G/DL (3.4-5.0) Globulin 3.8 g/dL Albumin/Globulin Ratio 1.1 (1.0-2.7) Lipase 135 U/L (73-393) Urine Opiates Screen Negative (NEGATIVE) Urine Barbiturates Screen Negative (NEGATIVE) Phencyclidine (PCP) Screen Negative (NEGATIVE) Urine Amphetamines Screen Negative (NEGATIVE) Urine Benzodiazepines Screen Negative (NEGATIVE) Urine Cocaine Screen Negative (NEGATIVE) Urine Marijuana (THC) Screen Positive (NEGATIVE) H EKG Diagnostic Results EKG Time: 09:15 EP Interpretation: Yuliet Dewitt MD Rate: normal - 63 bpm Rhythm: NSR ST Segments: no acute changes ASA given to the pt in ED: No Rhythm Strip Diag. Results Rhythm Strip Time: 09:13 EP Interpretation: yes - Yuliet Dewitt MD Rate: 63 bpm Rhythm: NSR, no PVC's, no ectopy Last Vital Signs Date Time Temp Pulse Resp B/P (MAP) Pulse Ox O2 Delivery O2 Flow Rate FiO2 11/26/19 08:55 98.6 77 16 142/82 (102) 97 Room Air Disposition: HOME, SELF-CARE Condition: Stable Scripts Famotidine* (Pepcid 20mg tablet*) 20 Mg Tablet 20 MG ORAL TWICE A DAY, #60 TAB 0 Refills Prov: Yuliet Dewitt M.D. 11/26/19 Promethazine Hcl* (PHENERGAN*) 25 Mg Tablet 25 MG ORAL Q6H, #15 TAB 0 Refills Prov: Yuliet Dewitt M.D. 11/26/19 Additional Instructions: The patient was provided with discharge instructions, notified to follow-up with a primary care doctor and or specialist in the next 24-48 hours, and to return to the ED if they have worsening of their symptoms. Please note that this report is being documented using [employer] technology. This can lead to erroneous entry secondary to incorrect interpretation by the dictating instrument. Yuliet Dewitt M.D. Nov 26, 2019 09:06
[2019-11-26] MEDS ORDERED: Pantoprazole Inj IVP ONE (09:15)
[2019-11-26] MEDS ORDERED: Haloperidol 5mg/ml Inj IM ONE (09:15)
[2019-11-26 09:16] VITALS: BP 142/82
--- NOTE | 2019-11-26 09:28 | NUR ---
ED Nurse Note:pt. came from home with c/o abdominal pain and nausea vomiting, VSS, pt. is ambulatory, THC user, blood and urine sent to labs and IV meds and fluids given
[2019-11-26 09:29] LABS: APPEARANCE,URINE CLEAR; BILIRUBIN, URINE NEGATIVE (NEGATIVE); GLUCOSE, URINE (UA) NEGATIVE (NEGATIVE); KETONES,URINE 2+ (NEGATIVE); LEUKOCYTE ESTERASE ,URINE 1+ (NEGATIVE); NITRITE,URINE NEGATIVE (NEGATIVE); PH,URINE 7 (4.5-8.0); PROTEIN,URINE 2+ (NEGATIVE); UROBILINOGEN,URINE 4 MG/DL (0.0-1.0)
[2019-11-26 09:31] LABS: BASOPHILS % (AUTO) 5.3 % (0.0-2.0); EOSINOPHILS % (AUTO) 0.6 % (0.0-3.0); HEMATOCRIT 43.3 % (37.0-47.0); HEMOGLOBIN 15.2 G/DL (12.0-16.0); LYMPHOCYTES % (AUTO) 28.2 % (20.0-45.0); MEAN CORPUSCULAR VOLUME 85 FL (80-99); MONOCYTES % (AUTO) 9.5 % (1.0-10.0); NEUTROPHILS % (AUTO) 56.5 % (45.0-75.0); PLATELET COUNT 376 K/UL (150-450); RED BLOOD COUNT 5.11 M/UL (4.20-5.40); RED CELL DISTRIBUTION WIDTH 10.9 % (11.6-14.8); WHITE BLOOD COUNT 8.6 K/UL (4.8-10.8)
[2019-11-26 09:36] LABS: ANION GAP 12 mmol/L (5-15); BLOOD UREA NITROGEN 12 mg/dL (7-18); CALCIUM 8.8 MG/DL (8.5-10.1); CARBON DIOXIDE 25 MMOL/L (21-32); CHLORIDE 97 MMOL/L (98-107); COLOR,URINE YELLOW; POTASSIUM 3.4 MMOL/L (3.5-5.1); SODIUM 134 MMOL/L (136-145)
[2019-11-26 09:42] LABS: ALANINE AMINOTRANSFERASE 19 U/L (12-78); ALBUMIN 4.3 G/DL (3.4-5.0); ALBUMIN/GLOBULIN RATIO 1.1 (1.0-2.7); ALKALINE PHOSPHATASE 112 U/L (46-116); ASPARTATE AMINO TRANSFERASE 13 U/L (15-37); BILIRUBIN,TOTAL 0.6 MG/DL (0.2-1.0)
[2019-11-26] MEDS ORDERED: PHENERGAN25 M1 ORAL (09:59)
[2019-11-26] MEDS ORDERED: FAMOTIDINE20 MG ORAL (09:59)
[2019-11-26 10:06] VITALS: BP 128/74
[2019-11-26 10:50] VITALS: BP 128/74
== END 2019-11-26 11:00 | disposition home or self-care (01) ==
LOC: EMR 09:04
DX: K29.70 Gastritis, unspecified, without bleeding (principal); E87.6 Hypokalemia; R11.15 Cyclical vomiting syndrome unrelated to migraine
CPT/HCPCS: 36415; 80053; 80307; 81003; 81025; 83690; 83735; 85025; 93005; 96361; 96372; 96374; J1630; J2550; J7030; S0164; Z7502; 99284; J8499

== ENCOUNTER 2020-02-24 16:13 | Emergency (ER) | payer MEDICAID ==
[~2020-02-24] VITALS: Ht 149.9 cm; Wt 68.0 kg
[~2020-02-24 16:13] MED LIST changes: +FAMOTIDINE20 MG ORAL
[2020-02-24] MEDS ORDERED: Ketorolac 30mg Inj IV ONE (16:45)
[2020-02-24 17:04] VITALS: BP 133/81
--- NOTE | 2020-02-24 17:07 | Emergency Room Report ---
History of Present Illness General Chief Complaint: Diarrhea Source: Patient, Medical Record Present Illness HPI 34-year-old female with history of gastritis here complaining of epigastric pain trauma and few bouts of nonbloody emesis and diarrhea x3 days. Denies fever and chills, cough and congestion, headache and dizziness. Denies eating any spicy or acidic. Reports that no longer smokes marijuana. Denies any tobacco smoke and drug use. Denies . Also complains of few days of frequency of urination. Denies hematuria. 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 COVID-19 Screening: Negative COVID-19 COVID-19 Testing Source: 2 months ago Patient History Past Medical History: see triage record Past Surgical History: none Pertinent Family History: none Last Menstrual Period: 02/03/20 Now: No Immunizations: UTD Reviewed Nursing Documentation: PMH: Agreed; PSxH: Agreed Nursing Documentation-PMH Past Medical History: No History, Except For Hx Asthma: Yes Hx Gastrointestinal Problems: Yes - gastritis Review of Systems All Other Systems: negative except mentioned in HPI Physical Exam Vital Signs Date Time Temp Pulse Resp B/P (MAP) Pulse Ox O2 Delivery O2 Flow Rate FiO2 02/24/20 16:17 99.3 81 18 133/81 (98) 96 Room Air Sp02 EP Interpretation: reviewed, normal General Appearance: no apparent distress, alert, GCS 15, non-toxic Head: normocephalic, atraumatic Eyes: bilateral eye normal inspection, bilateral eye PERRL ENT: hearing grossly normal, normal pharynx, no angioedema, normal voice Neck: full range of motion, supple/symm/no masses Respiratory: chest non-tender, lungs clear, normal breath sounds, speaking full sentences Cardiovascular #1: regular rate, rhythm, no edema Gastrointestinal: normal bowel sounds, non tender, soft, no mass, no organomegaly, no peritonitis, no bruit, non-distended, no guarding, no hernia, no pulsatile mass, no rebound Rectal: deferred Genitourinary: no CVA tenderness Musculoskeletal: back normal Neurologic: alert, motor strength/tone normal, oriented x3, sensory intact, responsive, speech normal Psychiatric: judgement/insight normal, memory normal, mood/affect normal, no suicidal/homicidal ideation Skin: no rash Lymphatic: no adenopathy Medical Decision Making PA Attestation All diagnoses and treatment plans were reviewed and discussed with my supervising physician Dr. Watts Diagnostic Impression: Primary Impression: Gastritis Additional Impression: UTI (urinary tract infection) ER Course 34-year-old female with history of gastritis here complaining of epigastric pain trauma and few bouts of nonbloody emesis and diarrhea x3 days. Denies fever and chills, cough and congestion, headache and dizziness. Denies eating any spicy or acidic. Reports that no longer smokes marijuana. Denies any tobacco smoke and drug use. Denies . Also complains of few days of frequency of urination. Denies hematuria. Ddx considered but are not limited to: appendicitis, cholecystis, gastritis, gastroenteritis, UTI, pyelonephritis, Vital signs: are WNL, pt. is afebrile H&PE are most consistent with: gastritis, UTI ORDERS:CBC, CMP, UA, tox screen, Urine preg, lipase, pepcid, zofran, dicyclomine, macrobid ED INTERVENTIONS: NS bolus, zofran, toradol, Pepcid At this time no further imaging is needed patient abdomen is soft, patient has no guarding, pain is epigastric with history of gastritis. DISCHARGE: At this time pt. is stable for d/c to home. Will provide printed patient care instructions, and any necessary prescriptions. Care plan and follow up instructions have been discussed with the patient prior to discharge. Take medication as directed, increase oral hydration, avoid eating spicy acidic food, follow primary care provider, if worsening symptoms return to the emergency room Last Vital Signs Date Time Temp Pulse Resp B/P (MAP) Pulse Ox O2 Delivery O2 Flow Rate FiO2 02/24/20 16:17 99.3 81 18 133/81 (98) 96 Room Air Disposition: HOME, SELF-CARE Condition: Stable Patient Instructions: Gastritis, Adult, Urinary Tract Infection, [id number] Additional Instructions: Take medication as directed, increase oral hydration, avoid eating spicy acidic food, follow primary care provider, if worsening symptoms return to the emergency room Paola Farooq Feb 24, 2020 17:07
[2020-02-24 17:57] LABS: APPEARANCE,URINE SLIGHTLY CLOUDY; BILIRUBIN, URINE NEGATIVE (NEGATIVE); GLUCOSE, URINE (UA) NEGATIVE (NEGATIVE); KETONES,URINE 2+ (NEGATIVE); LEUKOCYTE ESTERASE ,URINE 1+ (NEGATIVE); NITRITE,URINE NEGATIVE (NEGATIVE); PH,URINE 6 (4.5-8.0); PROTEIN,URINE 3+ (NEGATIVE); UROBILINOGEN,URINE NORMAL MG/DL (0.0-1.0)
[2020-02-24 18:00] LABS: COLOR,URINE YELLOW
[2020-02-24 18:02] LABS: BASOPHILS % (AUTO) 1.1 % (0.0-2.0); LYMPHOCYTES % (AUTO) 10.2 % (20.0-45.0); MEAN CORPUSCULAR VOLUME 84 FL (80-99); MONOCYTES % (AUTO) 7.3 % (1.0-10.0); NEUTROPHILS % (AUTO) 81.4 % (45.0-75.0); PLATELET COUNT 319 K/UL (150-450); RED BLOOD COUNT 4.86 M/UL (4.20-5.40); RED CELL DISTRIBUTION WIDTH 12.5 % (11.6-14.8); WHITE BLOOD COUNT 11.9 K/UL (4.8-10.8)
[2020-02-24 18:09] LABS: ANION GAP 11 mmol/L (5-15); BLOOD UREA NITROGEN 14 mg/dL (7-18); CALCIUM 9.7 MG/DL (8.5-10.1); CARBON DIOXIDE 28 MMOL/L (21-32); CHLORIDE 100 MMOL/L (98-107); CREATININE 0.9 MG/DL (0.55-1.30); POTASSIUM 3.7 MMOL/L (3.5-5.1); SODIUM 138 MMOL/L (136-145)
[2020-02-24 18:14] LABS: ALANINE AMINOTRANSFERASE 27 U/L (12-78); ALBUMIN 4.7 G/DL (3.4-5.0); ALBUMIN/GLOBULIN RATIO 1.1 (1.0-2.7); ALKALINE PHOSPHATASE 127 U/L (46-116); ASPARTATE AMINO TRANSFERASE 22 U/L (15-37); BILIRUBIN,TOTAL 0.4 MG/DL (0.2-1.0)
[2020-02-24] MEDS ORDERED: FAMOTIDINE20 MG ORAL (18:18)
[2020-02-24] MEDS ORDERED: ZOFRAN4 M1 ORAL (18:18)
[2020-02-24] MEDS ORDERED: NITROFURANTOIN100 M2 ORAL (18:18)
[2020-02-24] MEDS ORDERED: DICYCLOMINE HCL10 MG ORAL (18:18)
[2020-02-24 18:30] VITALS: BP 128/78
== END 2020-02-24 18:30 | disposition home or self-care (01) ==
LOC: EMR 16:43
DX: K29.70 Gastritis, unspecified, without bleeding (principal); N39.0 Urinary tract infection, site not specified; J45.909 Unspecified asthma, uncomplicated
CPT/HCPCS: 36415; 80053; 80307; 81003; 81025; 83690; 85025; 87086; 96361; 96374; 96375; G0480; J1885; J2405; J7030; S0028; Z7502; 99284

== ENCOUNTER 2020-02-26 14:00 | Emergency (ER) | payer MEDICAID ==
[~2020-02-26] VITALS: Ht 149.9 cm; Wt 68.0 kg
[~2020-02-26 14:00] MED LIST changes: +DICYCLOMINE HCL10 MG ORAL; +NITROFURANTOIN100 M2 ORAL; +ZOFRAN4 M1 ORAL
[2020-02-26 15:01] VITALS: BP 140/86
--- NOTE | 2020-02-26 15:01 | NUR ---
ED Nurse Note: Pt walked in to ED c/o nausea/ vomiting x4 days. Per pt, she has not been able to keep food down. Pt also c/o right side abdominal pain and pressure to her lower abdomen. Denies fever/ chills. AAox4, verbally responsive. No SOB, on room air.
--- NOTE | 2020-02-26 15:39 | Emergency Room Report ---
History of Present Illness General Chief Complaint: Abdominal Pain Source: Patient Present Illness HPI 34-year-old female presents to the emergency department complaining of 8 out of 10 severity dysuria, urinary frequency, lower abdominal pain with vomiting x4 days. Patient reports inability to keep anything down. Patient reports history of gastritis and gestational diabetes. Patient denies fevers or chills. She denies constipation or diarrhea. Patient denies blood in the vomit or blood in her stools or black tarry stools. Patient denies . She denies back pain. No other aggravating or relieving factors at this time. Pt. reports she was here two days ago for same symptoms and had labs performed. Pt. reports she was given Rx for abx for UTI, and Zofran for vomiting. She reports not being able to keep anything down. She reports some THC use. 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 COVID-19 Screening: Negative COVID-19 COVID-19 Testing Source: 12/25 Patient History Past Medical History: see triage record Past Surgical History: none Pertinent Family History: none Last Menstrual Period: 02/02 Now: No Reviewed Nursing Documentation: PMH: Agreed; PSxH: Agreed Nursing Documentation-PMH Past Medical History: No History, Except For Hx Asthma: Yes Hx Gastrointestinal Problems: Yes - gastritis Review of Systems All Other Systems: negative except mentioned in HPI Physical Exam Vital Signs Date Time Temp Pulse Resp B/P (MAP) Pulse Ox O2 Delivery O2 Flow Rate FiO2 02/26/20 14:55 99.0 74 18 140/86 (104) 97 Room Air Sp02 EP Interpretation: reviewed, normal General Appearance: no apparent distress, alert, GCS 15, non-toxic Head: normocephalic, atraumatic Eyes: bilateral eye normal inspection, bilateral eye PERRL ENT: hearing grossly normal, normal voice, moist mucus membranes Neck: full range of motion Respiratory: lungs clear, normal breath sounds, no wheezing, speaking full sentences Cardiovascular #1: regular rate, rhythm, normal capillary refill Gastrointestinal: normal bowel sounds, soft, no peritonitis, non-distended, no guarding, no hernia, tenderness - epigastric ttp Rectal: deferred Genitourinary: normal inspection, no CVA tenderness Musculoskeletal: back normal, normal range of motion, gait/station normal, non- tender Neurologic: alert, motor strength/tone normal, oriented x3, sensory intact, res ponsive, speech normal Psychiatric: judgement/insight normal Skin: no rash, normal color, normal turgor Medical Decision Making PA Attestation Dr. Daugherty is my supervising Physician whom patient management has been discussed with. Diagnostic Impression: Primary Impression: Gastritis Qualified Codes: K29.70 - Gastritis, unspecified, without bleeding Additional Impression: UTI (urinary tract infection) Qualified Codes: N30.00 - Acute cystitis without hematuria ER Course 34-year-old female presents to the emergency department complaining of 8 out of 10 severity dysuria, urinary frequency, lower abdominal pain with vomiting x4 days. Patient reports inability to keep anything down. Patient reports history of gastritis and gestational diabetes. Patient denies fevers or chills. She denies constipation or diarrhea. Patient denies blood in the vomit or blood in her stools or black tarry stools. Patient denies . She denies back pain. No other aggravating or relieving factors at this time. Pt. reports she was here two days ago for same symptoms and had labs performed. Pt. reports she was given Rx for abx for UTI, and Zofran for vomiting. She reports not being able to keep anything down. She reports some THC use. Ddx considered but are not limited to GE, colitis, acute appendicitis, SBO, Cyclical Vomiting secondary to THC, * Vital signs: pt. is afebrile, H&PE are most consistent with GE most likely viral in etiology, no evidence to suggest acute abdomen on physical exam. Suspicion for cannabinoid induced vomiting. Pt. is non-toxic in appearance. She is actively vomiting. No significant signs to suggest dehydration. ORDERS: -UDS: Positive for THC -Urine Hcg: Negative -AccuCheck: 85 ED INTERVENTIONS: - NS iv hydration, -Zofran 4mg IV -20mg Pepcid IV -[id number] IV -- GI Cocktail --After above interventions this patient successfully completed oral fluid challenge without nausea or vomiting. DISCHARGE: At this time pt. is stable for d/c to home. Will provide printed patient care instructions, and any necessary prescriptions. Care plan and follow up instructions have been discussed with the patient prior to discharge. Labs Test 02/26/20 15:41 02/26/20 19:31 Urine Color Yellow Urine Appearance Slightly cloudy Urine pH 6 (4.5-8.0) Urine Specific [place] 1.015 (1.005-1.035) Urine Protein 2+ (NEGATIVE) Urine Glucose (UA) Negative (NEGATIVE) Urine Ketones 4+ (NEGATIVE) Urine Blood Negative (NEGATIVE) Urine Nitrite Negative (NEGATIVE) Urine Bilirubin Negative (NEGATIVE) Urine Urobilinogen 4 MG/DL (0.0-1.0) Urine Leukocyte Esterase 1+ (NEGATIVE) Urine RBC 0-2 /HPF (0 - 2) Urine WBC 2-4 /HPF (0 - 2) Urine Squamous Epithelial Cells Few /LPF (NONE/OCC) Urine Bacteria Few /HPF (NONE) Urine HCG, Qualitative Negative (NEGATIVE) Urine Opiates Screen Negative (NEGATIVE) Urine Barbiturates Screen Negative (NEGATIVE) Phencyclidine (PCP) Screen Negative (NEGATIVE) Urine Amphetamines Screen Negative (NEGATIVE) Urine Benzodiazepines Screen Negative (NEGATIVE) Urine Cocaine Screen Negative (NEGATIVE) Urine Marijuana (THC) Screen Positive (NEGATIVE) POC Whole Blood Glucose 85 MG/DL (74-106) EKG Diagnostic Results Troponin ordered: Yes When was troponin ordered?: Feb 26, 2020 EKG Time: 13:08 Rate: normal Rhythm: NSR ST Segments: no acute changes ASA given to the pt in ED: No PA Scribe Text This Interpretation was scribed by INGRID Wild. Last Vital Signs Date Time Temp Pulse Resp B/P (MAP) Pulse Ox O2 Delivery O2 Flow Rate FiO2 02/26/20 14:55 99.0 74 18 140/86 (104) 97 Room Air Status: improved Disposition: HOME, SELF-CARE Condition: Stable Scripts Metoclopramide Hcl* (REGLAN*) 5 Mg Tablet 5 MG ORAL EVERY 6 HOURS, #12 TAB Prov: Damaris Wild 02/26/20 Referrals: Remi Hurst [facility] Patient Instructions: Nausea and Vomiting, Adult, Urinary Tract Infection, [id number] Additional Instructions: Take medications as directed. Follow up with a Primary Care Provider in 3-5 days, even if your symptoms have resolved. --Please review list of primary care clinics, if you do not already have a primary care provider Return sooner to ED if new symptoms occur, or current symptoms become worse. - Please note that this Emergency Department Report was dictated using [employer] filter press operator technology software, occasionally this can lead to erroneous entry secondary to interpretation by the dictation equipment. Damaris Wild Feb 26, 2020 15:39
[2020-02-26] MEDS ORDERED: Lidocaine 2% Visc 15ml soln ORAL ONE (17:00)
[2020-02-26] MEDS ORDERED: Mylanta II UD 30ml ORAL ONE (17:00)
[2020-02-26 18:42] LABS: BILIRUBIN, URINE NEGATIVE (NEGATIVE); GLUCOSE, URINE (UA) NEGATIVE (NEGATIVE); KETONES,URINE 4+ (NEGATIVE); LEUKOCYTE ESTERASE ,URINE 1+ (NEGATIVE); NITRITE,URINE NEGATIVE (NEGATIVE); PH,URINE 6 (4.5-8.0); PROTEIN,URINE 2+ (NEGATIVE); UROBILINOGEN,URINE 4 MG/DL (0.0-1.0)
[2020-02-26 18:43] LABS: APPEARANCE,URINE SLIGHTLY CLOUDY; COLOR,URINE YELLOW
[2020-02-26] MEDS ORDERED: Metoclopramide 10mg/2ml Inj IVP ONE (19:00)
--- NOTE | 2020-02-26 19:10 | NUR ---
ED Nurse Note: Recieved care from [facility]
[2020-02-26] MEDS ORDERED: REGLAN5 MG ORAL (19:36)
[2020-02-26 19:45] VITALS: BP 132/86
--- NOTE | 2020-02-26 19:49 | NUR ---
ER DISCHARGE NOTE: Patient is cleared to be discharged per ERMD, pt is aox4, on room air, with stable vital signs. pt was given dc and prescription instructions, pt was able to verbalize understanding, pt id band and iv site removed without complications. pt is able to ambulate with steady gait. pt took all belongings. Pt left in a private vehi
== END 2020-02-26 19:49 | disposition home or self-care (01) ==
LOC: EMR 15:36
DX: N30.00 Acute cystitis without hematuria (principal); K29.70 Gastritis, unspecified, without bleeding
CPT/HCPCS: 80307; 81003; 81025; 82962; 96374; 96375; J2405; J2765; S0028; Z7502; 99284